=== PATIENT | male | born 1985 | race Caucasian/White ===

== ENCOUNTER 2018-07-14 23:48 | Emergency (ER) | payer SELFPAY ==
[~2018-07-14] VITALS: Ht 175.3 cm; Wt 111.1 kg
[2018-07-15] MEDS ORDERED: CLINDAMYCIN PHOS 600 MG/ 4 ML VIAL IM ONE (00:30)
== END 2018-07-15 00:44 | disposition home or self-care (01) ==
LOC: FSED 23:48
DX: L03.116 Cellulitis of left lower limb (principal)
CPT/HCPCS: 99282